=== PATIENT | male | born 1990 | race Caucasian/White ===

== ENCOUNTER 2016-10-22 08:10 | Emergency (ER) | payer OTHER ==
[~2016-10-22] VITALS: Ht 170.2 cm; Wt 81.6 kg
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
[2016-10-22 08:24] VITALS: BP 129/85
[2016-10-22] MEDS ORDERED: CLINDAMYCIN HC300 M1 PO (08:46)
[2016-10-22] MEDS ORDERED: PERCOCET 5-3251 EACH PO (08:46)
== END 2016-10-22 08:50 ==
LOC: ERH 08:10
DX: T22.211A Burn of second degree of right forearm, initial encounter (principal); T22.221A Burn of second degree of right elbow, initial encounter; X15.8XXA Contact with other hot household appliances, initial encounter; Y93.89 Activity, other specified; Y92.9 Unspecified place or not applicable
CPT/HCPCS: 90471; 90714